=== PATIENT | male | born 1970 | race Caucasian/White ===

== ENCOUNTER → 2019-09-28 | Outpatient (CLI) | payer BC ==
--- NOTE | 2019-09-28 14:50 | PCVCIMAG ---
APPROVED REPORT Study performed: 09/28/2019 13:44:06 Exam: Stress Echocardiogram Indication: Dyspnea,fatigue Patient Location: Echo lab Stress Nurse: Gina Henry RN Room #: 2 Status: routine Ht: 5 ft 10 in HR: 107 bpm BP: 106/78 mmHg Rhythm: NSR Medical History Medical History: HTN,Dil asc AO Cardiac Risk Factors: HTN Previous Cardiac Procedures: none Pretest Chest Pain Characteristics: No chest pain Exercise History: Physically active Procedure The patient underwent an Exercise Stress Test using the Barak Protocol. Blood pressure, heart rate, and EKG were monitored. An Echocardiogram was performed by cost recovery technician in four stages in quad fashion. At peak stress, four selected images were obtained and placed side by side with resting images for comparison. Stress Test Details Stress Test: Exercise stress testing was performed using a Barak protocol. HR Resting HR: 107 bpmMax Heart Rate (APMHR): 172 bpm Max HR Achieved: 157 bpmTarget HR (85% APMHR): 146 bpm % of APMHR: 91 Recovery HR: 113 bpm HR response to stress: Normal HR response to stress, tachycardia at rest BP Resting BP: 106/78 mmHg Max BP: 134/70 mmHg Recovery BP: 122/76 mmHg BP response to stress: Normal blood pressure response to stress. ECG Resting ECG: Sinus Tachycardia Stress ECG: Sinus Rhythm ST Change: Non-ischemic Maximum ST Deviation: 0 mm Arrhythmia: Occ PACs Recovery ECG: Sinus Rhythm Recovery ST Change: Non-ischemic Recovery ST Deviation: 0 mm Recovery Arrhythmia: Occ PACs Clinical Reason for Termination: Maximal effort Stress Symptoms: Leg Fatigue Exercise duration: 7 min 00 sec Highest Stage Achieved: Stage 2: 2.5 mph at 12% grade. Exercise capacity: 10.1 METs Overall Exercise Capacity for Age: Poor Angina Score: None No complications. Stress ECG Conclusion Clinical: Non-ischemic ECG: Non-ischemic Hernandez Treadmill Score is 7.0 which is Low risk. Pre-Stress Echo The resting Echocardiogram showed normal left ventricular contractility with an estimated Ejection Fraction of about 50-55%. Normal wall motion in all segments on baseline images. Post-Stress Echo The stress Echocardiogram showed normal left ventricular contractility with an estimated Ejection Fraction of about 60-65%. Normal augmentation of wall motion in all segments on post stress images. Clinical No clinical or ECG evidence for ischemia. Conclusion Clinical Response: Non-ischemic Exercise Capacity: Below Average Stress ECG Response: Non-ischemic Stress Echo Images: Non-ischemic No clinical, EKG or echocardiographic evidence for ischemia. No echocardiographic evidence for exercise induced ischemia. Normal stress echocardiogram with maximal exercise stress. Normal color doppler. No regurgitation or stenosis present on pulmonic, mitral, tricuspid. Probable bicuspid aortic valve without stenosis. Mild aortic insufficiency. Dilated ascending aorta is seen at 4.8cm. The arch is 3.[address] of aorta to assess size, scheduled. Echocardiogram in 6mo, if stable TAAA, then image yearly. No prior study available for comparison. <Conclusion> No clinical, EKG or echocardiographic evidence for ischemia. No echocardiographic evidence for exercise induced ischemia. Normal stress echocardiogram with maximal exercise stress. Normal color doppler. No regurgitation or stenosis present on pulmonic, mitral, tricuspid. Probable bicuspid aortic valve without stenosis. Mild aortic insufficiency. Dilated ascending aorta is seen at 4.8cm. The arch is 3.[address] of aorta to assess size, scheduled. Echocardiogram in 6mo, if stable TAAA, then image yearly.
== END | disposition home or self-care (01) ==
LOC: PCVCIMAG 13:41
PROVIDERS: ATTEND Internal Medicine
DX: I10 Essential (primary) hypertension (principal); R94.31 Abnormal electrocardiogram [ECG] [EKG]
CPT/HCPCS: 93325; 93351